=== PATIENT | female | born 1965 | race African-American/Black ===

== ENCOUNTER 2018-01-14 16:29 | Emergency (ER) | payer OTHER ==
--- NOTE | 2018-01-14 17:15 | PDOC ---
History of Present Illness - General Chief Complaint: Psychiatric Stated Complaint: ANXIETY ATTACK, SLEEPING PROBLEMS Time Seen by Provider: 01/14/18 17:15 - History of Present Illness Initial Comments: 52 year old female with recently diagnosed depression and anxiety disorder presenting with acute anxiety in the setting of marital problems and perimenopausal symptoms. She states that she would like her "hormone levels checked as well." States that she was diagnosed with depression and anxiety by Psychiatrist Dr. Aguirre a few weeks prior. She was also given some Ativan by her PCP but hasn't used them because she is concerned about the addicting nature of these medications. She denies SI/ HI, previous suicide attempt, safety issues at home, domestic abuse history, or lack of safety at home. She states she has had hot flashes and trouble sleeping as well for the past few months. Denies nausea, vomiting, diarrhea, constipation, chest pain, headaches, or other symptoms. 01/14/18 19:26 Past History - Past Medical History Allergies/Adverse Reactions: Allergies Allergy/AdvReac Type Severity Reaction Status Date / Time No Known Drug Allergies Allergy Verified 01/14/18 16:36 caffeine AdvReac Intermediate HEADACHE Verified 01/14/18 16:36 Home Medications: Ambulatory Orders Ibuprofen [Motrin -] 400 mg PO TID PRN 05/30/15 Anemia: No Asthma: No Cancer: No Cardiac Disorders: No CVA: No COPD: No CHF: No Dementia: No Diabetes: No GI Disorders: No Disorders: No HTN: No Hypercholesterolemia: No Liver Disease: No Seizures: No Thyroid Disease: No - Surgical History Abdominal Surgery: No Appendectomy: No Cardiac Surgery: No Cholecystectomy: No Lung Surgery: No Neurologic Surgery: No Orthopedic Surgery: No - Suicide/Smoking/Psychosocial Hx Smoking History: Never smoked Have you smoked in the past 12 months: No Hx Alcohol Use: Yes (occassional) Drug/Substance Use Hx: No Substance Use Type: None Hx Substance Use Treatment: No Review of Systems - Review of Systems Constitutional: No: Chills, Diaphoresis, Fever HEENTM: No: Blurred Vision, Tearing Respiratory: No: Cough, Orthopnea, Shortness of Breath Cardiac (ROS): No: Chest Pain, Edema, Irregular Heart Rate ABD/GI: No: Constipated, Diarrhea, Nausea, Vomiting : No: Burning, Dysuria, Discharge, Incontinence Musculoskeletal: No: Joint Pain, Muscle Pain, Muscle Weakness, Neck Pain Integumentary: No: Erythema, Flushing, Lesions, Lumps Neurological: No: Headache, Numbness, Paresthesia Psychiatric: Yes: Anxiety, Depression Endocrine: No: Flushing Hematologic/Lymphatic: No: Anemia, Blood Clots, Easy Bleeding *Physical Exam - Vital Signs Last Vital Signs Temp Pulse Resp BP Pulse Ox 98.2 F 101 H 18 136/94 100 01/14/18 16:30 01/14/18 16:30 01/14/18 16:30 01/14/18 16:30 01/14/18 16:30 - Physical Exam General Appearance: Yes: Nourished, Appropriately Dressed. No: Apparent Distress HEENT: positive: EOMI, JUAN JOSE, Normal ENT Inspection, Normal Voice Neck: positive: Trachea midline, Normal Thyroid, Supple. negative: Tender, Rigid Respiratory/Chest: positive: Lungs Clear, Normal Breath Sounds. negative: Chest Tender, Respiratory Distress, Accessory Muscle Use Cardiovascular: positive: Regular Rhythm, Regular Rate Gastrointestinal/Abdominal: positive: Normal Bowel Sounds, Flat, Soft. negative : Tender Musculoskeletal: positive: Normal Inspection. negative: CVA Tenderness Extremity: positive: Normal Capillary Refill, Normal Inspection, Normal Range of Motion. negative: Tender Integumentary: positive: Normal Color, Dry, Warm Neurologic: positive: blueprint clerk II-XII NML intact, Fully Oriented, Alert, Normal Mood/ Affect, Normal Response, Motor Strength 5/5 ED Treatment Course - LABORATORY CBC & Chemistry Diagram: 01/14/18 18:11 01/14/18 18:11 Medical Decision Making - Medical Decision Making 52 year old s/p recent panic attack and desire to "have my hormones checked". Denies SI/HI or any other emergent psych complaint. Basic labs, EKG, and TSH all WNL. Patient counseled on sleep hygiene and anxiety relief using low dose of her prescribed Ativan. 01/14/18 19:58 EKG showing NSR, 79 Rate, WV Interval 132, QRS 440, and slight atrial enlargement. 01/14/18 20:09 *DC/Admit/Observation/Transfer Diagnosis at time of Disposition: Anxiety - Discharge Dispostion Disposition: HOME Condition at time of disposition: Improved Decision to Admit order: No - Referrals Referrals: Tram Min MD [Primary Care Provider] - - Patient Instructions Printed Discharge Instructions: DI for Anxiety -- Adult Additional Instructions: You can use half a dose of your home Ativan whenever you have your panic attacks. It is important to follow with your PCP and [facility] to check your hormone levels. Please return to the ED if you have new or worsening symptoms. - Post Discharge Activity Forms/Work/School Notes: Back to Work
[2018-01-14 17:21] VITALS: TEMP 98.2; BMI 24.2
--- NOTE | 2018-01-14 18:00 | PDOC ---
Attending Attestation - HPI HPI: 01/14/18 19:18 The patient is a 52 year old female with significant PMH of recently diagnosed anxiety and depression by [place] in [facility] [place] to the emergency department with anxiety and depression. Patient states she saw was diagnosed with anxiety and depression two days ago and prescribed her lorazepam but was nervous about taking it at home. Patient refuses to take a dose of lorazepam in the ER. Patient states she will follow up with a psychiatrist on February 02. The patient denies chest pain, shortness of breath, headache and dizziness. Denies fever, chills, nausea, vomit, diarrhea and constipation. Denies dysuria, frequency, urgency and hematuria. Allergies: NKA Past surgical history: None reported. Social history: No reported alcohol, drugs, or cigarette use. PCP: Dr. Partida - Physicial Exam PE: 01/14/18 19:22 Constitutional: (+) Appears anxious. Awake, alert, oriented. No acute distress. Head: Normocephalic. Atraumatic Eyes: PERRL. EOMI. Conjunctivae are not pale. ENT: Mucous membranes are moist and intact. Posterior pharynx without exudates or erythema. Uvula midline. Neck: Supple. Full ROM. No lymphadenopathy. Cardiovascular: Regular rate. Regular rhythm. S1, S2 regular. Distal pulses are 2+ and symmetric. Pulmonary/Chest: No evidence of respiratory distress. Clear to auscultation bilaterally No wheezing, rales or rhonchi. Abdominal: Soft and non-distended. There is no tenderness. No rebound, guarding or rigidity. No organomegaly. No palpable masses. Good bowel sounds. Back: No CVA tenderness. Musculoskeletal: No edema. No cyanosis. No clubbing. Full range of motion in all extremities. Nocalf tenderness. Radial/pedal pulses are intact and 2+ bilaterally Skin: Skin is warm and dry. No petechiae. No purpura. Neurological: Alert and oriented to person, place, and time. Cranial nerves II -XII are grossly intact. Normal speech. Strength is grossly symmetric. No sensory deficits. Psychiatric: Good eye contact. Normal interaction, affect and behavior. - Medical Decision Making v <Mary Camacho - Last Filed: 01/14/18 19:23> - Resident Resident Name: Ali,Khameinei - ED Attending Attestation I have performed the following: I have examined & evaluated the patient, The case was reviewed & discussed with the resident, I agree w/resident's findings & plan, Exceptions are as noted - Medical Decision Making 01/14/18 18:00 I, Dr. Krystyna Weiss, DO, attest that this document has been prepared under my direction and personally reviewed by me in its entirety. I further attest, that it accurately reflects all work, treatment, procedures and medical decision -making performed by me. 01/14/18 18:19 a/p: 52yo female with no pmhx recently dx with anxiety and depression by her docs at [facility] [place] -has follow up appts with the psychiatrist, windows application administrator, and her primary care on February 02 -pt states she is scared to take the lorazepam prescribed by her docs at home -i offered to test dose the medication here in the ED and the patient refused the dose here in the ED -will check labs -if labs ok, pt stable for d/c to home and outpt follow up for her anxiety -pt was given remedies to control anxeity and depression at home - started a workout program in the last 2 days -will monitor and reassess 01/14/18 19:31 cbc reviewed - hgb stable pending chem, tsh 01/14/18 19:51 labs revewied - stable chem stable for d/c to home <Krystyna Weiss - Last Filed: 01/14/18 19:52>
[2018-01-14 18:30] LABS: BASO % 0.5 % (0-2.0); EOS % 0.3 % (0-4.5); HEMATOCRIT 34.2 % (32.4-45.2); HEMOGLOBIN 11.3 GM/dL (10.7-15.3); LYMPH % 33.5 % (8-40); MCH 28.6 pg (25.7-33.7); MEAN CELL VOLUME 86.8 fl (80-96); MEAN PLT VOLUME 7.3 fl (7.5-11.1); MONO % 11.8 % (3.8-10.2); NEUT % 53.9 % (42.8-82.8); PLATELET COUNT 320 K/MM3 (134-434); RBC 3.94 M/mm3 (3.60-5.2); RDW 15.7 % (11.6-15.6); WHITE BLOOD COUNT 5.5 K/mm3 (4.0-10.0)
[2018-01-14 18:56] LABS: ALBUMIN 3.7 g/dl (3.4-5.0); ANION GAP 9 (8-16); BILIRUBIN,TOTAL 0.4 mg/dL (0.2-1.0); BLOOD UREA NITROGEN 12 mg/dL (7-18); CALCIUM 8.4 mg/dL (8.5-10.1); CHLORIDE 106 mmol/L (98-107); CO2 26 mmol/L (21-32); CREATININE 0.6 mg/dL (0.55-1.02); GLUCOSE,RANDOM 79 mg/dL (74-106); POTASSIUM 3.5 mmol/L (3.5-5.1); SGOT/AST 12 U/L (15-37); SGPT/ALT 23 U/L (12-78); SODIUM 141 mmol/L (136-145); TOT PROT 7.5 g/dl (6.4-8.2)
[2018-01-14 19:04] LABS: ALK PHOS 55 U/L (45-117)
[2018-01-14 20:20] VITALS: BP 151/96; PULSE 71
--- NOTE | 2018-01-15 08:50 | EKG ---
Test Reason : Blood Pressure : / mmHG Vent. Rate : 079 BPM Atrial Rate : 079 BPM P-R Int : 132 ms QRS Dur : 080 ms QT Int : 384 ms P-R-T Axes : 068 008 023 degrees QTc Int : 440 ms SINUS RHYTHM WITH MARKED SINUS ARRHYTHMIA POSSIBLE LEFT ATRIAL ENLARGEMENT NONSPECIFIC T WAVE ABNORMALITY WHEN COMPARED WITH ECG OF 21-SEP-2004 09:17, VENT. RATE HAS INCREASED BY 26 BPM QT HAS LENGTHENED Confirmed by ADRIANA ORTIZ MD ([id number]) on 01/15/2018 8:50:02 AM Referred By: Confirmed By:ADRIANA ORTIZ MD
== END 2018-01-14 20:26 | disposition home or self-care (01) ==
LOC: JER 16:29
DX: F41.9 Anxiety disorder, unspecified (principal); F32.9 Major depressive disorder, single episode, unspecified
CPT/HCPCS: 36415; 80053; 84443; 85025; 93005; 93010; 99282-25

== ENCOUNTER 2023-09-17 16:43 | Emergency (ER) | payer OTHER ==
[2023-09-17 17:01] VITALS: BP 134/96; PULSE 107; RESP 19; TEMP 97.8; BMI 29.2
[2023-09-17] MEDS ORDERED: hydrOXYzine PAMOATE 25 MG CAPSULE (FP) PO ONE (21:31)
[2023-09-17] MEDS: hydrOXYzine PAMOATE 25 MG CAPSULE (FP) PO ONE (21:41)
== END 2023-09-17 21:48 | disposition home or self-care (01) ==
LOC: JER 16:43
DX: F41.9 Anxiety disorder, unspecified (principal)
CPT/HCPCS: 99283-25

== ENCOUNTER 2024-05-07 22:34 | Day surgery (SDC) | payer OTHER ==
[2024-05-07] MEDS: LACTATED RINGERS SOLUTION 1000 ML INFUS.BAG IV ONE (23:16)
[2024-05-07] MEDS ORDERED: ACETAMINOPHEN INJECTION 100 ML ONE (23:16)
[2024-05-07] MEDS ORDERED: KETOROLAC TROMETHAMINE 15 MG/ML VIAL ONE (23:17)
[2024-05-07] MEDS ORDERED: ONDANSETRON 4 MG/2 ML VIAL ONE (23:17)
[2024-05-07 23:23] LABS: BASO % 0.2 % (0-2.0); EOS % 0.2 % (0-4.5); HEMATOCRIT 36.4 % (32.4-45.2); HEMOGLOBIN 12.3 GM/dL (10.7-15.3); LYMPH % 11.2 % (8-40); MCH 30.2 pg (25.7-33.7); MCHC 33.6 g/dl (32.0-36.0); MEAN CELL VOLUME 89.8 fl (80-96); MEAN PLT VOLUME 6.6 fl (7.5-11.1); MONO % 9.1 % (3.8-10.2); NEUT % 79.3 % (42.8-82.8); PLATELET COUNT 295 10^3/uL (134-434); RBC 4.06 M/mm3 (3.60-5.2); RDW 14.2 % (11.6-15.6); WHITE BLOOD COUNT 12.1 K/mm3 (4.0-10.0)
[2024-05-07] MEDS: ONDANSETRON 4 MG/2 ML VIAL IVPUSH ONE (23:25)
[2024-05-07] MEDS: KETOROLAC TROMETHAMINE 15 MG/ML VIAL IVPUSH ONE (23:25)
[2024-05-07] MEDS: ACETAMINOPHEN 1000 MG/100 ML BAG IVPB ONE (23:25)
[2024-05-07 23:37] LABS: EPI CELLS 10 /uL (0-25.1); HYALINE CASTS 0 /uL (0-3.1); URINE APPEARANCE CLEAR; URINE BACTERIA 125 /uL (0-1359); URINE BILIRUBIN NEGATIVE (NEGATIVE); URINE COLOR YELLOW; URINE GLUCOSE (UA) NEGATIVE (NEGATIVE); URINE KETONE 1+ (NEGATIVE); URINE LEUK ESTERASE NEGATIVE (NEGATIVE); URINE NITRITE NEGATIVE (NEGATIVE); URINE PROTEIN NEGATIVE (NEGATIVE); URINE RBC 37 /uL (0-23.9); URINE UROBILINOGEN 0.2 mg/dL (0.2-1.0); URINE WBC 7 /uL (0-25.8)
[2024-05-07 23:46] LABS: POTASSIUM 3.7 mmol/L (3.5-5.1)
[2024-05-07 23:48] LABS: ALBUMIN 3.8 g/dl (3.4-5.0); BLOOD UREA NITROGEN 30.2 mg/dL (7-18); CALCIUM 9.2 mg/dL (8.5-10.1)
[2024-05-07 23:52] LABS: CREATININE 1.2 mg/dL (0.55-1.3)
[2024-05-07 23:53] LABS: BILIRUBIN,TOTAL 0.3 mg/dL (0.2-1); TOT PROT 7.1 g/dl (6.4-8.2)
[2024-05-08] MEDS ORDERED: TAMSULOSIN HCL 0.4 MG CAP ONE (00:08)
[2024-05-08] MEDS: SODIUM CHLORIDE 0.9% 500 ML INFUS.BAG IV ONE (00:08)
[2024-05-08] MEDS: TAMSULOSIN HCL 0.4 MG CAP PO ONE (00:14)
[2024-05-08] MEDS ORDERED: morphine SULFATE 4 MG/ML VIAL ONE (01:25)
[2024-05-08] MEDS: morphine CARPU-JECT 4 MG/1 ML DISP.SYRIN IVPUSH ONE (01:30)
[2024-05-08] MEDS ORDERED: ONDANSETRON 4 MG/2 ML VIAL IVPUSH PRN ×2 (01:58→10:55)
[2024-05-08] MEDS ORDERED: KETOROLAC TROMETHAMINE 15 MG/ML VIAL IVPUSH PRN (02:00)
[2024-05-08] MEDS: SODIUM CHLORIDE 1,000 ML IV SCH ×2 (03:24→11:31)
[2024-05-08 04:56] VITALS: BMI 22.6
[2024-05-08] MEDS: ACETAMINOPHEN 1000 MG/100 ML BAG IVPB PRN (06:56)
[2024-05-08] MEDS ORDERED: oxyCODONE HCL 5 MG TABLET PO PRN ×2 (08:18→10:55)
[2024-05-08] MEDS ORDERED: MIDAZOLAM HCL 2 MG/2 ML SINGLE DOSE VIAL ONE (08:55)
[2024-05-08] MEDS ORDERED: PROPOFOL 20 ML ONE (08:55)
[2024-05-08] MEDS ORDERED: LIDOCAINE HCL 2% 100 MG/5 ML DISP.SYRIN ONE (08:56)
[2024-05-08] MEDS: TAMSULOSIN HCL 0.4 MG CAP PO SCH (09:20)
[2024-05-08] MEDS: CEFTRIAXONE 1 GM in DEXTROSE 5%-WATER - 50 ML IVPB SCH (09:20)
[2024-05-08] MEDS: amLODIPine BESYLATE 5 MG TABLET (FP) PO SCH (09:20)
[2024-05-08 09:31] LABS: HEMATOCRIT 35.5 % (32.4-45.2); HEMOGLOBIN 11.8 GM/dL (10.7-15.3); MCH 29.9 pg (25.7-33.7); MCHC 33.3 g/dl (32.0-36.0); MEAN CELL VOLUME 89.8 fl (80-96); MEAN PLT VOLUME 6.9 fl (7.5-11.1); PLATELET COUNT 267 10^3/uL (134-434); RBC 3.96 M/mm3 (3.60-5.2); RDW 14.3 % (11.6-15.6); WHITE BLOOD COUNT 8.4 K/mm3 (4.0-10.0)
[2024-05-08 09:37] LABS: INR 1.05 (0.83-1.09); PROTHROMBIN TIME (PATIENT) 11.9 SEC (9.7-13.0)
[2024-05-08 09:40] LABS: ACTIVATED PTT 30.8 SECONDS (25.2-36.5)
[2024-05-08 09:51] LABS: POTASSIUM 3.9 mmol/L (3.5-5.1)
[2024-05-08 09:53] LABS: ALBUMIN 3.2 g/dl (3.4-5.0); BLOOD UREA NITROGEN 16.6 mg/dL (7-18); MAGNESIUM 1.8 mg/dL (1.8-2.4)
[2024-05-08 09:56] LABS: CREATININE 1.2 mg/dL (0.55-1.3); PHOSPHOROUS 3.2 mg/dL (2.5-4.9)
[2024-05-08 09:58] LABS: BILIRUBIN,TOTAL 0.6 mg/dL (0.2-1); TOT PROT 6.8 g/dl (6.4-8.2)
[2024-05-08] MEDS ORDERED: ACETAMINOPHEN 1000 MG/100 ML BAG IVPB PRN (10:55)
[2024-05-08 11:15] VITALS: RESP 18
[2024-05-08] MEDS: LACTATED RINGERS SOLUTION 1,000 ML IV SCH (11:33)
[2024-05-08 12:35] VITALS: BP 130/89; PULSE 58; TEMP 98.8
[2024-05-08] MEDS ORDERED: PATIENT'S OWN MEDICATION (NON-FORMULARY) (Potassium Citrate [Potassium Citrate Er] 10 MEQ) PO SCH (14:00)
[2024-05-08] MEDS: PATIENT'S OWN MEDICATION (NON-FORMULARY) (Potassium Citrate [Potassium Citrate Er] 10 MEQ) PO SCH (15:20)
[2024-05-09] MEDS ORDERED: TAMSULOSIN HCL 0.4 MG CAP PO SCH (08:30)
[2024-05-09] MEDS ORDERED: CEFUROXIME AXETIL 500 MG TABLET PO SCH (10:00)
[2024-05-09] MEDS ORDERED: amLODIPine BESYLATE 5 MG TABLET (FP) PO SCH (10:00)
[2024-05-09] MEDS ORDERED: CEFTRIAXONE 1 GM in DEXTROSE 5%-WATER - 50 ML IVPB SCH (10:00)
[2024-05-16 23:07] LABS: CA OXALATE MONOHYDR. 100 % (.); SIZE 3x3 mm (.); WEIGHT 23 mg (.)
== END 2024-05-08 17:15 | disposition home or self-care (01) ==
LOC: JER 22:34 → JERBED 05-08 01:54 → UNDOADMIN 05-08 01:54 → J8W 05-08 04:09 → JERBED 05-08 04:09 → JASUSAT 05-08 13:05 → J8W 05-08 13:43 → JASUSAT 05-08 17:15
PROVIDERS: ATTEND Nurse Practitioner Family
PROC: 0TC78ZZ Extirpation of Matter from Left Ureter, Via Natural or Artificial Opening Endoscopic (ICD-10-PCS; 2024-05-08)
PROC: 0T7B8DZ Dilation of Bladder with Intraluminal Device, Via Natural or Artificial Opening Endoscopic (ICD-10-PCS; 2024-05-08)
PROC: 0T778DZ Dilation of Left Ureter with Intraluminal Device, Via Natural or Artificial Opening Endoscopic (ICD-10-PCS; 2024-05-08)
PROC: 0TCB8ZZ Extirpation of Matter from Bladder, Via Natural or Artificial Opening Endoscopic (ICD-10-PCS; principal; 2024-05-08 09:31)
DX: N13.2 Hydronephrosis with renal and ureteral calculous obstruction (principal); N21.0 Calculus in bladder
CPT/HCPCS: 36415; 74176-TC; 76000-TC-FY; 80053; 81003; 82360; 83735; 84100; 85025; 85027; 85610; 85730; 87086; 88300-TC; 94760; 99285-25; C2617; J0131